=== PATIENT | male | born 1965 | race Caucasian/White ===

== ENCOUNTER 2017-12-22 08:27 | Day surgery (SDC) | payer OTHER ==
--- NOTE | 2017-12-12 23:11 | HP ---
AMENDED REPORT NOW INCLUDES DESIGNATED COSIGNER PREOPERATIVE HISTORY AND PHYSICAL: DATE OF ADMISSION/SURGERY: 12/22/17 - [facility] DATE OF OFFICE VISIT: 12/12/17 ATTENDING SURGEON: Dr. Matthias Hart.* (DICTATED BY SHASTA JAQUEZ) PROCEDURE: Right shoulder arthroscopic decompression, debridement, subpectoral biceps tenodesis, and possible rotator cuff repair. CHIEF COMPLAINT: Right shoulder pain. HISTORY OF PRESENT ILLNESS: Nigel is a 52-year-old male who presents to the clinic for right shoulder pain due to rotator cuff tear and biceps tendinitis. He failed conservative measures and therefore agreed to undergo right shoulder arthroscopic decompression, debridement, subpectoral biceps tenodesis, and possible rotator cuff repair with Dr. Hart on 12/22/17. PAST MEDICAL HISTORY: Hypertension. PAST SURGICAL HISTORY: Denies prior surgeries. MEDICATIONS: 1. Amlodipine besylate and benazepril hydrochloride 10/40 mg 1 by mouth daily. 2. Ibuprofen 200 mg 2 to 3 tabs every 6 hours as needed for pain. ALLERGIES: ZITHROMAX. FAMILY HISTORY: Positive for heart disease, hypertension, and stroke in his father. SOCIAL HISTORY: He lives with his spouse. He teaches at [employer]. He quit tobacco 15 years ago. He drinks 12 alcoholic beverages a week. He exercises regularly. He is left-hand dominant. REVIEW OF SYSTEMS: A 14-point review of systems was reviewed with the patient. Positive for current complaint, otherwise negative. Denies fever, chills, chest pain, shortness of breath, history of DVT or PE, history of bleeding disorder. PHYSICAL EXAMINATION GENERAL: A 52-year-old well-developed, well-nourished male, in no acute distress. Alert and oriented x3. Appropriate mood and affect. Appropriate balance and coordination of the upper extremities. VITAL SIGNS: Height 67, weight 194, pulse 88, blood pressure 146/98, respiratory rate 16, temperature 97.5, BMI 30.4. HEENT: Normocephalic, atraumatic. PERRLA. Throat clear. NECK: Supple. PULMONARY: Lungs are clear to auscultation bilaterally. No wheezing, rhonchi, or rales. CARDIO: Regular rate and rhythm. S1, S2. No murmurs, gallops, or rubs. No edema. ABDOMEN: Positive bowel sounds. Soft, nontender. MUSCULOSKELETAL: Right upper extremity: Skin is intact. No warmth or erythema. Tenderness to palpation over the bicipital groove and subacromial space. Forward flexion to 155, abduction to 155, external rotation to 65, discomfort with cross body adduction. +5/5 strength to rotator cuff testing with pain. Positive impingement, Speeds, Trivedi-Nadeem, Bulloch. +2 radial pulse. Sensation intact to light touch distally. DIAGNOSTIC STUDIES: Multi-view x-rays and MRI revealed partial thickness tearing of the supraspinatus and infraspinatus tendon and superior labral tear with evidence of bursitis. IMPRESSION: Right shoulder rotator cuff tear and biceps tendinitis. PLAN: The patient is scheduled to undergo a right shoulder arthroscopic decompression, debridement, subpectoral biceps tenodesis, and possible rotator cuff repair with Dr. Hart on 12/22/17. He will follow up in 10 to 14 days postop for followup and suture removal. Percocet will be used for postop pain management, which was sent to the patient's pharmacy. I-STOP was checked and as expected. Keflex will be used for antibiotic prophylaxis. SHASTA JAQUEZ [id number]/[facility] #: [id number] [facility]
[~2017-12-22 08:27] MED LIST: Buffered Lidocaine 0.9% SYRIN* 5 ML/SYR SYRINGE INTRADERM ONE; Lidocaine 2% PF * 5 ML VIAL ONE; Midazolam* 1 MG/ML 2 ML VIAL (2 MG) ONE; Propofol* 10 MG/ML 20 ML BTL IV PUSH ONE; fentaNYL* 50 MCG/ML 2 ML VIAL (100 MCG VIAL) ONE
[2017-12-22] MEDS ORDERED: ceFAZolin 2 GM PREMIX in ORs 2 GM/50 ML BAG IVPB ONE (08:36)
[2017-12-22] MEDS ORDERED: Lidocaine 2% PF * 5 ML VIAL ONE (09:13)
[2017-12-22] MEDS ORDERED: Rocuronium* 10 MG/ML VIAL ONE ×2 (09:22→11:52)
[2017-12-22] MEDS ORDERED: ROPIVACAINE 5 MG/ML 30 ML BTL (0.5%) ONE ×2 (09:22→10:30)
[2017-12-22] MEDS ORDERED: Bupivacaine 0.25% SDV* 30 ML ONE (10:30)
[2017-12-22] MEDS ORDERED: Bupivacaine 0.25% EPI 200,000* 30 ML SDV ONE (10:31)
[2017-12-22] MEDS ORDERED: Phenylephrine INJ* 10 MG/ML 1 ML VIAL (10 MG) ONE (11:31)
[2017-12-22] MEDS ORDERED: Dexamethasone IV* 4 MG/ML 1 ML (4 MG) ONE (11:46)
[2017-12-22] MEDS ORDERED: VASOPRESSIN 20 UNITS/ML 1 ML VIAL ONE (11:48)
[2017-12-22] MEDS ORDERED: Metoclopramide IV* 5 MG/ML 2 ML VIAL ONE (12:23)
[2017-12-22] MEDS ORDERED: Ketorolac INJ* 30 MG/ML 1 ML VIAL ONE (12:23)
[2017-12-22] MEDS ORDERED: Ondansetron INJ* 2 MG/ML VIAL ONE (12:23)
[2017-12-22] MEDS ORDERED: Acetaminophen IV 1GM/100ML * 100 ML ONE (12:25)
[2017-12-22] MEDS ORDERED: HYDROmorphone INJ* 0.5 MG/0.5 ML SYRINGE ONE (12:25)
[2017-12-22] MEDS ORDERED: Glycopyrrolate IV* 0.2 MG/ML 1 ML VIAL ONE (12:29)
[2017-12-22] MEDS ORDERED: Neostigmine Methylsulfate* 1 MG/ML 10 ML VIAL (1 mg/ml) ONE (12:29)
[2017-12-22] MEDS ORDERED: oxyCODONE TAB* 5 MG TAB PO PRN (12:38)
[2017-12-22] MEDS ORDERED: HYDROmorphone INJ1* 1 MG/ML SYRINGE IV PRN (12:38)
[2017-12-22] MEDS ORDERED: Naloxone* 0.4 MG/ML 1 ML VIAL IV PRN (12:38)
[2017-12-22 14:05] VITALS: BP 114/75
--- NOTE | 2017-12-23 04:40 | OP ---
DATE OF OPERATION: 12/22/17 - [facility] DATE OF : 65 SURGEON: Matthias Hart MD CARDIAC/VASCULAR SONOGRAPHER: SHASTA Kwong. An creative assistant was needed for the entirety of the case to help with positioning, retraction, and was utilized throughout all portions of the case. ANESTHESIOLOGIST: Dr. Holland. PRE-OP DIAGNOSIS: Right shoulder high-grade partial thickness tear of the rotator cuff, impingement, bicipital tendonitis. POST-OP DIAGNOSIS: High-grade partial thickness articular and bursal sided rotator cuff tear supraspinatus with superior labrum type 2 tear; anterior, posterior and inferior labral fraying; chondral flap of the inferior aspect of the glenoid. OPERATIVE PROCEDURE: Right shoulder arthroscopy with: 1. Extensive glenohumeral debridement including debridement of the labrum as well as chondroplasty. 2. Subchondral decompression with acromioplasty. 3. Rotator cuff repair, double row fashion. 4. Subpectoral biceps tenodesis. COMPLICATIONS: None. ESTIMATED BLOOD LOSS: Minimal. IMPLANTS USED: One 4.75 Healicoil, one Multi-Fix and one Q-Fix. INDICATIONS: Nigel Adair is a 62-year-old male who sustained injury to his shoulder after a fall while skiing for a couple of years ago. He has had injections, has failed conservative management including physical therapy, anti - inflammatories and elected to proceed with surgical treatment. Risks and benefits were discussed at length included, but not limited to bleeding, infection, damage to nerves, vessels, surrounding structures, wound nonhealing, persistent pain, need for surgery, scarring, stiffness, incomplete relief of symptoms, risks of anesthesia. DESCRIPTION OF PROCEDURE: The patient was greeted in the preoperative area by the attending surgeon. Correct extremity was marked and consent was confirmed. The patient underwent interscalene nerve block by the anesthesiologist after which he was brought back to the operating suite where he was placed in supine position on the operating table. He then underwent general anesthesia with endotracheal intubation. The patient was then placed in the left lateral decubitus position with all bony prominences padded. He was placed on an axillary roll. The right shoulder was prepped and draped in the usual sterile fashion beginning with chlorhexidine soap, scrub, and alcohol wipe and a final prep with ChloraPrep. After appropriate surgical pause indicating site, side, procedure and administration of antibiotics, the standard posterolateral portal was made sharply with 11 blade. The scope was introduced into the joint. The joint was examined. There was abundant synovitis about the joint. The biceps had unstable superior labral tear as well as tendonitis and synovitis. The anterior portal was made in an outside in fashion. The arthroscopic scissors was used to do biceps tenotomy for later tenodesis. The undersurface of the rotator cuff had high-grade partial thickness tearing. The infraspinatus was intact. There was fraying of the anterior, posterior, superior and inferior labrum. In the inferior aspect of the glenoid, there was an unstable chondral flap but the inferior recess was intact. There were some glenoid humeral changes. There were grade 2 changes to the glenoid where the chondral flap was grade 2 to 3. The humeral head had grade 1 to 2 changes inferiorly with a beginning of an osteophyte. Remainder of the humeral head had grade-1 changes. The cuff was then marked using PDS suture for later identification on the bursal side. Once the chondroplasty debridement was complete, attention was directed to the bursal side. With the scope in the bursal space, the lateral portal was made. The shaver was used to debride back the abundant bursa that was present and very hyperemic and friable. This revealed a downward sloping anterolateral spur, which was first skeletonized using electrocautery device and then debrided back using 4-0 oval presley. The cuff was obviously torn on the bursal side as well and the area where the PDS suture marked this. Once the acromioplasty was completed, attention was directed to the rotator cuff. At this point because he is torn both on the articular and bursal side, decision was made to take this down and repair it. A 11 blade was used to release the tendon. The rotator cuff again was released using the 11 blade. The soft tissues were carefully debrided back using the shaver to remove any diseased or damage tissue. Electrocautery was used to skeletonize the greater tuberosity, which was skeletonized and then rasped using arthroscopic rasp and a 4-0 oval presley was then used to gently decorticate to allow for good bony bleeding bed. At this point, it was a small U-shaped type of tear and one 4.75 Healicoil was placed through a separate stab incision with excellent purchase. The patient had good quality of bone. The sutures were passed through the tendon in horizontal mattress configuration, tied down, and then secured with lateral row fixation using a Multifix anchor. Final images were obtained. The wounds were copiously irrigated with sterile saline. Attention was directed to the biceps. The bed was air planed to the right side. The anterior aspect of the shoulder was prepped again using ChloraPrep. The 15 blade was used to make incision in line with biceps tendon. Soft tissues were carefully dissected to expose the pec fascia, which was then elevated. Remainder of the dissection was done bluntly. The bicipital groove was palpated and the biceps was brought through the wound, found to have abundant hyperemia and erythema. The groove was then prepared in the usual fashion using electrocautery device, the red ball rasp and the osteotome to allow for bony bleeding bed. The Q-Fix was then drilled and deployed with excellent purchase. The sutures were passed through the tendon in a Victor Manuel-Josr type configuration to secure the biceps. The excess stump was excised. The biceps was shuttled back to the wound. The wounds were then copiously irrigated with sterile saline. The anterior wound was closed in layers with 2-0 Vicryl, 3-0 Monocryl. The portals were closed with 3-0 nylon. Sterile dressings were applied. Cryo/Cuff and UltraSling were applied. He was awoken from anesthesia and transferred to PACU in stable condition. POSTOPERATIVE PLAN: He will be nonweightbearing. He will be discharged on pain medication. DVT prophylaxis was considered, but deferred due to no previous personal or family history. I will see the patient back in 10 to 14 days. [id number]/[facility] #: [id number] REJI
== END 2017-12-22 14:25 | disposition home or self-care (01) ==
LOC: OREAST 08:27
PROVIDERS: ATTEND Orthopaedic Surgery
DX: S46.011A Strain of muscle(s) and tendon(s) of the rotator cuff of right shoulder, initial encounter (principal); S43.491A Other sprain of right shoulder joint, initial encounter; M75.41 Impingement syndrome of right shoulder; V00.321A Fall from snow-skis, initial encounter; Y93.23 Activity, snow (alpine) (downhill) skiing, snowboarding, sledding, tobogganing and snow tubing; Y92.838 Other recreation area as the place of occurrence of the external cause; G89.18 Other acute postprocedural pain; M75.21 Bicipital tendinitis, right shoulder; Z87.891 Personal history of nicotine dependence; Z87.442 Personal history of urinary calculi
CPT/HCPCS: C1713; C1776; J0690; J1100; J1170; J1885; J2250; J2405; J2704; J2710; J2765; J2795; J3010